=== PATIENT | female | born 1950 | race Two or more races ===

== ENCOUNTER 2024-12-24 10:43 | Emergency (ER) | payer MEDICARE, MEDICAID, SELFPAY ==
--- NOTE | 2024-12-24 10:49 | PC.NURSE ---
Pt. states she does not feel safe at home because her son does drugs and she's afraid of people he knows. Offered to call police for pt. and pt. states no. Pt. states she's not afraid of her son only the people he knows.
--- NOTE | 2024-12-24 11:08 | XR_ITS ---
Examination: CT abdomen and pelvis without contrast. Coronal 3-D reconstructions. Sagittal 2-D reconstructions. Date and time of exam:December 24, 2024, 1546 hours INDICATIONS: Abdominal pain beginning 3 days ago CTDI: vol (mGy): 10.6. DLP: (mGycm): 638. Technique: Axial images of the abdomen have been obtained, 3 mm slice thickness Intravenous contrast material has not been administered. Low dose protocols were performed. One or more of the following dose reduction techniques were used; automated exposure control, adjustment of the mA and/or KV according to patient size, use of iterative reconstruction technique. Findings: 22 mm pulmonary nodule with calcification in the left lower lobe 4 mm right lobe liver cyst Absent gallbladder Abnormal enlargement common bile duct 19 mm No pancreatic mass Spleen not enlarged Mild renal parenchymal scar formation Dense abdominal aortic calcification no aneurysmal dilatation 28 mm fat-containing umbilical hernia. 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
--- NOTE | 2024-12-24 11:08 | PD.EDRME ---
Rapid Medical Screening Exam RME Arrival date/time: 12/24/24 10:43 74-year-old female with a history of hyperlipidemia, hypertension presents to the emergency room with a chief complaint of right-sided flank pain x 3 days I have greeted and performed a focused initial assessment of this patient. A comprehensive ED assessment and evaluation of the patient, analysis of all test results, and completion of the medical decision making process will be conducted by additional ED providers. Chief Complaint: Back Pain/Injury Time Seen by Provider: 12/24/24 10:55 Vital signs: Vital Signs Temperature 99.2 F 12/24/24 11:09 Pulse Rate 71 12/24/24 11:09 Respiratory Rate 18 12/24/24 11:09 Blood Pressure 170/75 H 12/24/24 11:09 Pulse Oximetry (%) 98 12/24/24 11:09 Oxygen Delivery Method Room Air 12/24/24 11:09 Vital signs reviewed by provider: Yes
[2024-12-24 11:09] VITALS: BP 170/75; PULSE 71; RESP 18; TEMP 37.3; O2SAT 98; BMI 31.2
--- NOTE | 2024-12-24 11:18 | PD.EDRME ---
Rapid Medical Screening Exam RME Arrival date/time: 12/24/24 10:43 12/24/24 10:43 74-year-old female with a history of hyperlipidemia, hypertension presents to the emergency room with a chief complaint of right-sided flank pain x 3 days I have greeted and performed a focused initial assessment of this patient. A comprehensive ED assessment and evaluation of the patient, analysis of all test results, and completion of the medical decision making process will be conducted by additional ED providers. Chief Complaint: Back Pain/Injury Time Seen by Provider: 12/24/24 10:55 Vital signs: Vital Signs Temperature 99.2 F 12/24/24 11:09 Pulse Rate 71 12/24/24 11:09 Respiratory Rate 18 12/24/24 11:09 Blood Pressure 170/75 H 12/24/24 11:09 Pulse Oximetry (%) 98 12/24/24 11:09 Oxygen Delivery Method Room Air 12/24/24 11:09 RME Narrative: 12/24/24 10:43 74-year-old female with a history of hyperlipidemia, hypertension presents to the emergency room with a chief complaint of right-sided flank pain x 3 days I have greeted and performed a focused initial assessment of this patient. A comprehensive ED assessment and evaluation of the patient, analysis of all test results, and completion of the medical decision making process will be conducted by additional ED providers.
[2024-12-24 11:30] LABS: Collection Type, Urine Clean Catch
[2024-12-24] MEDS: ACETAMINOPHEN 325 MG TABLET 650 MG PO (11:31)
[2024-12-24] MEDS: KETOROLAC INJ 60 MG/2 ML VIAL 30 MG IM (11:32)
[2024-12-24 11:45] LABS: Bilirubin,Urine Negative (Negative); Blood,Urine 1+ (Negative); Clarity,Urine Turbid (Clear/Hazy); Color,Urine Yellow (Lt Yel-Yel); Glucose, Urine Negative (Negative); Hyaline Casts,Urine < 1 /hpf (0-1); Ketones,Urine Negative (Negative); Leukocyte Esterase,Urine Positive (Negative); Nitrite,Urine Negative (Negative); PH,Urine 5.5 (5.0-7.0); Protein,Urine 1+ (Neg - Trace); RBC,Urine 3 /hpf (0-3); Specific Gravity,Urine 1.024 (1.001-1.035); Squamous Epithelial Cell,Urine 15 /hpf (0-5); Urobilinogen,Urine 2.0 mg/dL (0.0-1.0); WBC,Urine 5 /hpf (0-5)
[2024-12-24] MEDS: ONDANSETRON ODT 4 MG TABRAP PO (12:02)
[2024-12-24 12:03] LABS: Basophils # (Auto) 0.0 Thou/mm3 (0.0-0.2); Basophils % (Auto) 0 % (0-2.5); Eosinophils # (Auto) 0.2 Thou/mm3 (0.0-0.5); Eosinophils % (Auto) 1 % (0-10); Hematocrit 34.5 % (36.0-46.0); Hemoglobin 12.0 g/dL (12.0-16.0); Immature Granulocytes Auto 0.04 Thou/mm3 (0.00-0.00); Lymphocytes # (Auto) 2.1 Thou/mm3 (1.0-4.8); Lymphocytes % (Auto) 18 % (10-50); Mean Corpuscular HGB Conc 34.8 g/dl (31.0-37.0); Mean Corpuscular Hemoglobin 31.3 pg (25.0-35.0); Mean Corpuscular Volume 90 fL (80-100); Monocytes # (Auto) 1.0 Thou/mm3 (0.0-0.8); Monocytes % (Auto) 8 % (0-12); Neutrophils # (Auto) 8.3 Thou/mm3 (1.8-7.7); Neutrophils % (Auto) 72 % (37-80); Nucleated Red Blood Cell # 0.00 Thou/mm3 (0.00-0.00); Nucleated Red Blood Cell % 0 /100 WBC (0); Platelet Count 258 Thou/mm3 (140-440); RDW Standard Deviation 40.6 fL (36.4-46.3); Red Blood Count 3.83 Miln/mm3 (4.00-5.20); White Blood Count 11.5 Thou/mm3 (3.6-11.0)
[2024-12-24 12:34] LABS: Alanine Aminotransferase < 7 U/L (10-49); Albumin, Serum 4.2 gm/dL (3.4-4.8); Albumin/Globulin Ratio 1.6 (1.2-2.2); Alkaline Phosphatase 91 U/L (46-116); Anion Gap 9 (7-16); Aspartate Amino Transferase 14 U/L (0-34); BUN/Creatinine Ratio 17 Ratio (12-20); Bilirubin,Total 0.6 mg/dL (0.3-1.2); Blood Urea Nitrogen 22 mg/dL (9-23); Calcium 9.0 mg/dL (8.3-10.6); Calcium (Corrected) 9.0 mg/dL (8.5-10.1); Carbon Dioxide 26.3 mMol/L (20.0-31.0); Chloride 99 mMol/L (98-107); Creatinine (Component) 1.3 mg/dL (0.6-1.3); Estimated Creatinine Clearance 38.3 mL/min (>60); Globulin 2.6 gm/dL (2.3-3.5); Glucose 120 mg/dL (74-106); Lipase 47 U/L (12-53); Osmolality,Calculated 272 (275-295); Potassium 3.6 mMol/L (3.4-5.1); Sodium 134 mMol/L (136-145); Total Protein 6.8 gm/dL (5.7-8.2); eGFR 43 See Note
--- NOTE | 2024-12-24 14:56 | PD.EDBACK ---
ED Back Injury Pain RME/HPI General Chief Complaint: Back Pain/Injury Stated Complaint: Right side back pain since Tuesday Time Seen by Provider: 12/24/24 10:55 Arrival date/time: 12/24/24 10:43 RME / HPI RME / HPI Narrative: 12/24/24 10:43 74-year-old female with a history of hyperlipidemia, hypertension presents to the emergency room with a chief complaint of right-sided flank pain x 3 days I have greeted and performed a focused initial assessment of this patient. A comprehensive ED assessment and evaluation of the patient, analysis of all test results, and completion of the medical decision making process will be conducted by additional ED providers. DR. MCGHEE MAIN ED EVALUATION 74 year old female with history of CVA, hypertension, diabetes, and hyperlipidemia presents to the ED for evaluation of right flank/back pain without radiation beginning 3 days ago. Described as aching in sensation that is aggravated with movements and laying on the right side, rating as moderate. Accompanied by nausea. Denies fevers, chills, chest pain, cough, shortness of breath, vomiting, diarrhea, constipation, or urinary symptoms. Denies any history of similar pain. Denies any falls or injuries. Related Data Home Medications ?Medication ?Instructions ?Recorded ?Confirmed amlodipine 10 mg tablet (Norvasc) 10 mg PO QDAY #0 tabs 01/20/15 04/30/20 benazepril 40 mg tablet (Lotensin) 40 mg PO QDAY #0 tabs 01/20/15 04/30/20 clopidogrel 75 mg tablet (Plavix) 75 mg PO QDAY #0 tabs 01/20/15 04/30/20 gabapentin 300 mg capsule 300 mg PO TID 04/30/20 04/30/20 hydrochlorothiazide 25 mg tablet 25 mg PO QAM 04/30/20 04/30/20 insulin human U-100 NPH-regulr 40 unit subcut BID 04/30/20 04/30/20 70-30 mix 100 unit/mL subcutaneous susp (Novolin 70/30 U-100 Insulin) loratadine 10 mg tablet 10 mg PO QDAY 04/30/20 04/30/20 Previous Rx's ?Medication ?Instructions ?Recorded aspirin 81 mg tablet,delayed 81 mg PO QDAY #30 tabs 05/01/20 release (Adult Low Dose Aspirin) atorvastatin 80 mg tablet 80 mg PO QPM #30 tabs 05/01/20 Allergies Allergy/AdvReac Type Severity Reaction Status Date / Time No Known Allergies Allergy Verified 12/24/24 10:48 Review of Systems Review of Systems Systems Reviewed: All systems reviewed, normal except as documented Past Medical History Past Medical History NEUROLOGIC: Positive Neurological Disorders and Cerebrovascular Accident (16 yrs ago. Left sided weakness.) CARDIAC: Positive Cardiac Disorders (Dr. Davidson), Hypercholesterolemia and Hypertension RESPIRATORY: Positive Bronchitis and Pneumonia GASTROINTESTINAL: Positive Gastrointestinal Disorders and Hemorrhoids REPRODUCTIVE: Positive Previous Pregnancies MUSCULOSKELETAL: Positive Musculoskeletal Disorders and Arthritis ENDOCRINE: Positive Endocrine Disorders and Diabetes Mellitus Type 2 PSYCHO/SOCIAL: Positive Depression OTHER HISTORY: Positive Falls (04/29/20) Surgical History SURGICAL: Positive Coronary Stent (1 or 2 stent per pt), Hysterectomy and Tubal Ligation Social History SMOKING STATUS: Former smoker ED Exam Narrative Physical exam: Constitutional: Awake, alert, nontoxic, no acute distress, obese HEENT: NC, AT, EOMI Neck: Supple CV: RRR, no m/r/g Lungs: CTAB, no w/r/r, no respiratory distress. Abd: Soft, NT, no HSM noted to palpation Back: Right CVA tenderness to palpation Extremities: No deformities, no edema noted Neuro: AAOx3, CN 2-12 Skin: Warm, dry, intact Course Course Course Narrative: 1659h: Patient CT back with the following findings: Recommend hepatobiliary sonography to assess abnormally enlarged, bile duct, 19mm 28 mm fat-containing umbilical hernia 5.7 cm pelvic wall hernia defect containing bowel but no incarcerated bowel Normal appendix Recommend pelvic sonography to assess for presence of subcentimeter right pelvic cyst. Patient clinically with pain to her right mid lateral back which is worse with movement and different positions. Labs are generally unremarkable otherwise. Given the previous, likely musculoskeletal cause of pain. Will advise symptomatic treatment for home. Will also recommend outpatient follow-up with PCP regarding the CT abnormal findings for outpatient ultrasound.. Quality Measures none Orders Category Date Time Status CT abdomen pelvis wo con Stat Exams 12/24/24 11:08 Completed CBC Stat Lab 12/24/24 11:46 Completed CMP [Comprehensive Metabolic Panel] Stat Lab 12/24/24 11:46 Completed Lipase Stat Lab 12/24/24 11:46 Completed UA [Urinalysis] Stat Lab 12/24/24 11:21 Completed Urine Culture Stat Lab 12/24/24 11:21 Received Acetaminophen Tab [Tylenol Tab] Med 12/24/24 11:08 Discontinued 650 mg PO X1 ONE Ketorolac Inj [Toradol Inj] Med 12/24/24 11:08 Discontinued 30 mg IM X1 ONE Ondansetron Odt [Zofran Odt] Med 12/24/24 11:41 Discontinued 4 mg PO X1 ONE Vital Signs Vital signs: Vital Signs Temperature 99.2 F 12/24/24 11:09 Pulse Rate 71 12/24/24 11:09 Respiratory Rate 18 12/24/24 11:09 Blood Pressure 170/75 H 12/24/24 11:09 Pulse Oximetry (%) 98 12/24/24 11:09 Oxygen Delivery Method Room Air 12/24/24 11:09 Pulse ox is 98% on room air which is adequate. Back Pain / Injury MDM Narrative MDM Narrative:: Bryanna Eldridge am scribing for and in the presence of Dr. Mcghee. Patient data External records reviewed:: [facility] previous records (I reviewed admission from 04/29/2020 through 05/04/2020 ) Clinical information provided by:: patient Social determinants that could affect healthcare access:: none Patient has the following chronic illnesses:: CVA, HTN, DM, HLD How is presenting disease/condition affected by chronic disease/condition?: uneffected by Evaluation data The following diagnostics were reviewed and interpreted by me:: lab results and radiology exam(s) Lab and/or radiology exams considered but not ordered:: None Interpretation Summary: Ordering Physician: Dae Patton Date of Service: 12/24/24 Procedure(s): CT abdomen pelvis wo con Accession Number(s): [id number] cc: Elena Grady PA-C; Dae Patton; Alexis Duron MD~ Examination: CT abdomen and pelvis without contrast. Coronal 3-D reconstructions. Sagittal 2-D reconstructions. Date and time of exam:December 24, 2024, 1546 hours INDICATIONS: Abdominal pain beginning 3 days ago CTDI: vol (mGy): 10.6. DLP: (mGycm): 638. Technique: Axial images of the abdomen have been obtained, 3 mm slice thickness Intravenous contrast material has not been administered. Low dose protocols were performed. One or more of the following dose reduction techniques were used; automated exposure control, adjustment of the mA and/or KV according to patient size, use of iterative reconstruction technique. Findings: 22 mm pulmonary nodule with calcification in the left lower lobe 4 mm right lobe liver cyst Absent gallbladder Abnormal enlargement common bile duct 19 mm No pancreatic mass Spleen not enlarged Mild renal parenchymal scar formation Dense abdominal aortic calcification no aneurysmal dilatation 28 mm fat-containing umbilical hernia. 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 Dictated By: Alexis Duron MD Signed By: <Electronically signed by Alexis Duron MD in OV> 12/24/24 1651 Medications / Prescriptions Medications or Prescriptions considered but not ordered:: None Medication administrations:: Medication Administration History Discontinued Medications Acetaminophen (Acetaminophen 325 Mg Tablet) 650 mg PO X1 ONE Stop: 12/24/24 11:09 Last Admin: 12/24/24 11:31 Dose: 650 mg Documented By: Ketorolac Tromethamine (Ketorolac Inj 60 Mg/2 Ml Vial) 30 mg IM X1 ONE Stop: 12/24/24 11:09 Last Admin: 12/24/24 11:32 Dose: 30 mg Documented By: Ondansetron HCl (Ondansetron Odt 4 Mg Tabrap) 4 mg PO X1 ONE; Protocol Stop: 12/24/24 11:42 Last Admin: 12/24/24 12:02 Dose: 4 mg Documented By: See above Consultations Consultation(s) initiated? (list below): No Diagnosis Differential diagnosis back pain/injury: lumbar radiculopathy, sciatica, strain of lumbar region, renal colic and pyelonephritis Most likely diagnosis given after review of the tests above:: Back pain Admission Indicated Admission indicated?: not indicated Admission Request Was there a request for admission?: No Disposition Plan Disposition Plan: Discharge Discharge Attestation Discharge Attestation: The patient and all family members were given an opportunity to ask questions and understood the discharge instructions. Discharge instructions specifically effects, indications for sooner follow up or return to the emergency department, and the expected course of current diagnosis. Patient condition: Stable Discharge Plan Plan Patient Disposition: HOME (Self Care) Patient condition on transfer: Stable Prescriptions/Referrals Prescriptions/Med Rec: No Action clopidogrel [Plavix] 75 MG tablet 75 mg PO QDAY Qty: 0 amlodipine [Norvasc] 10 MG tablet 10 mg PO QDAY Qty: 0 benazepril [Lotensin] 40 MG tablet 40 mg PO QDAY Qty: 0 gabapentin 300 mg Capsule 300 mg PO TID Novolin 70/30 U-100 Insulin 100 unit/mL (70-30) suspension 40 unit SUBCUT BID Patient Comments: INJECT 40 UNITS SUBCUTANEOUSLY TWICE A DAY hydrochlorothiazide 25 mg tablet 25 mg PO QAM loratadine 10 mg Tablet 10 mg PO QDAY atorvastatin 80 mg tablet 80 mg PO QPM Qty: 30 0RF aspirin [Adult Low Dose Aspirin] 81 mg tablet,delayed release (DR/EC) 81 mg PO QDAY Qty: 30 0RF Referrals: Elena Grady PA-C [Primary Care Provider] - In 1 week Problem List Clinical Impression: Back pain Patient/Caregiver Discharge Instructions Education Materials: Relieving Back Pain, ED Back Care Tips, ED Back Pain (Acute or Chronic) Additional Instructions: May take Tylenol 1 g every 6 hours as needed for pain. May also take naproxen 250 mg every 8-12 hours as needed for pain. Take with food as it may cause stomach irritation. May try Healy balm ointment or patches to the affected area as needed as well. Print Language: Amharic Stand Alone Forms: Bri Award Info., Patient Portal Info Letter
[2024-12-24 15:56] VITALS: BP 195/72; PULSE 68; RESP 16; TEMP 37.2; O2SAT 97
== END 2024-12-24 17:49 | disposition home or self-care (01) ==
PROVIDERS: Nurse Practitioner Family; Emergency Provider Family Medicine; PCP Specialist
DX: M54.9 Dorsalgia, unspecified (principal); K42.9 Umbilical hernia without obstruction or gangrene; N94.89 Other specified conditions associated with female genital organs and menstrual cycle; E78.00 Pure hypercholesterolemia, unspecified; I10 Essential (primary) hypertension; E66.9 Obesity, unspecified; E11.9 Type 2 diabetes mellitus without complications; Z68.31 Body mass index [BMI] 31.0-31.9, adult; Z95.5 Presence of coronary angioplasty implant and graft; Z87.891 Personal history of nicotine dependence; Z79.02 Long term (current) use of antithrombotics/antiplatelets; Z79.4 Long term (current) use of insulin; Z79.899 Other long term (current) drug therapy
CPT/HCPCS: 36415; 74176; 80053; 81001; 83690; 85025; 87086; 99283; J1885; Q0162; A9270